=== PATIENT | male | born 1990 | race Caucasian/White ===

== ENCOUNTER 2018-04-20 19:20 | Emergency (ER) | payer SELFPAY ==
[~2018-04-20] VITALS: Ht 177.8 cm; Wt 104.3 kg
[2018-04-20] MEDS ORDERED: diphenhydrAMINE HCL 50 MG/ML VIAL IV ONE (19:30)
[2018-04-20] MEDS ORDERED: HALOPERIDOL LACTATE INJ 5 MG/ML VIAL IM ONE (19:30)
[2018-04-20] MEDS ORDERED: IV NS 0.9% 1,000 ML BAG IV ONE (19:30)
[2018-04-20] MEDS ORDERED: LORAZEPAM INJ 2 MG/ML VIAL IVP ONE (19:30)
--- NOTE | 2018-04-20 19:31 | NUR ---
PT BIB [facility] WITH A C/O METH OD. PT WAS [facility] THE [facility] AND WAS ACTING [place]. PT BECAME COMBATIVE WITH EMS WHEN THEY ARRIVED. PT WENT TO ER #[id number] AND WAS PLACED IN 4 POINT RESTRAINTS, PT WAS NOT ALLOWING STAFF TO TRIAGE OR TAKE VITAL SIGNS. PT WAS PLACED ON THE MONITOR AND CONTINUOUS PULSE OX. DR. ALANIZ IS AT THE BEDSIDE.
[2018-04-20] MEDS ORDERED: HALOPERIDOL LACTATE INJ 5 MG/ML VIAL ONE (19:35)
[2018-04-20] MEDS ORDERED: LORAZEPAM INJ 2 MG/ML VIAL ONE (19:35)
[2018-04-20] MEDS ORDERED: diphenhydrAMINE HCL 50 MG/ML VIAL ONE (19:35)
[2018-04-20 19:46] LABS: BASOPHILS # (AUTO) 0.1 /CMM (0.0-0.2); BASOPHILS % (AUTO) 0.9 % (0.0-2.0); EOSINOPHILS % (AUTO) 0.5 % (0.0-6.0); HEMATOCRIT 47 % (39-51); HEMOGLOBIN 15.8 g/dL (13.5-17.5); LYMPHOCYTES # (AUTO) 2.6 /CMM (0.8-4.8); LYMPHOCYTES % (AUTO) 22.1 % (20.0-44.0); MEAN CORPUSCULAR HGB CONC 34 g/dl (31.0-36.0); MEAN CORPUSCULAR VOLUME 93 fL (80-96); MONOCYTES % (AUTO) 8.5 % (2.0-12.0); PLATELET COUNT (AUTO) 393 /CMM (150-450); RED BLOOD CELL COUNT(AUTO) 5.01 MIL/uL (4.5-6.0); WHITE BLOOD COUNT (AUTO) 11.7 K/uL (4.3-11.0)
--- NOTE | 2018-04-20 19:47 | NUR ---
PT REC'D MEDICATION ORDERED. BLOOD DRAWN AND SENT TO LAB.
[2018-04-20 19:56] LABS: CALCIUM, SERUM 9.2 mg/dL (8.5-10.1); CARBON DIOXIDE 17 mmol/L (21-32); CHLORIDE 104 mmol/L (98-107); CREATININE 1.2 mg/dL (0.6-1.3); GLUCOSE 108 mg/dL (74-106); POTASSIUM 3.3 mmol/L (3.5-5.1); SODIUM SERUM 141 mmol/L (136-145); UREA NITROGEN, BLOOD 15 mg/dL (7-18)
--- NOTE | 2018-04-20 19:58 | NUR ---
PT PLACED ON 2L O2 VIA NC.
[2018-04-20 20:02] LABS: ALANINE AMINOTRANSFERASE 39 U/L (12-78); ALBUMIN 4.1 g/dL (3.4-5.0); ALCOHOL, BLOOD < 3 mg/dL (0-0); ALKALINE PHOSPHATASE 97 U/L (46-116); ASPARTATE AMINOTRANSFERASE 23 U/L (15-37); BILIRUBIN,DIRECT 0.1 mg/dL (0.0-0.2); BILIRUBIN,TOTAL 0.6 mg/dL (0.2-1.0); TOTAL PROTEIN, SERUM 7.9 g/dL (6.4-8.2)
[2018-04-20 20:03] LABS: ACETAMINOPHEN < 2 ug/ml (10-30); SALICYLATE 2.6 mg/dL (2.8-20.0)
--- NOTE | 2018-04-20 20:03 | NUR ---
URINE SAMPLE OBTAINED AND SENT TO LAB.
[2018-04-20 20:07] LABS: APPEARANCE,URINE Clear (CLEAR); BILIRUBIN,URINE SMALL (NEGATIVE); BLOOD, URINE Negative Ery/uL (NEGATIVE); COLOR,URINE Yellow (YELLOW); KETONES,URINE 15 (NEGATIVE); LEUKOCYTE ESTERASE ,URINE Negative (NEGATIVE); NITRITE, URINE Negative (NEGATIVE); PH,URINE 7.5 (5.0-8.0); PROTEIN,URINE Negative (NEGATIVE); UGLUCOSE Negative (NEGATIVE)
--- NOTE | 2018-04-20 20:24 | NUR ---
PT APPEARS TO BE RESTING COMFORTABLY WITH NO S/S OF PAIN OR DISTRESS.
--- NOTE | 2018-04-20 21:50 | NUR ---
PT IS ONLY IN 1 RESTRAINT. LUE.
--- NOTE | 2018-04-20 22:10 | NUR ---
PT APPEARS TO BE SLEEPING SOUNDLY WITH NO S/S OF PAIN OR DISTRESS. PT IS EASILY AROUSED.
--- NOTE | 2018-04-20 23:10 | NUR ---
FINAL RESTRAINT REMOVED. PT APPEARS TO BE RESTING COMFORTABLY WITH NO S/S OF PAIN OR DISTRESS.
--- NOTE | 2018-04-21 00:58 | NUR ---
PT APPEARS TO BE SLEEPING COMFORTABLY. PT IS EASILY AROUSED. VSS. NAD NOTED. WILL CONTINUE TO MONITOR THE PT.
--- NOTE | 2018-04-21 01:00 | NUR ---
PT REMOVED ALL MONITOR LEADS, BP CUFF, PULSE OX. WILL CONTINUE TO MONITOR THE PT.
--- NOTE | 2018-04-21 03:25 | NUR ---
PT APPEARS TO BE SLEEPING SOUNDLY. NO S/S OF PAIN OR DISTRESS NOTED. RESP EVEN AND UNLABORED.
--- NOTE | 2018-04-21 05:10 | NUR ---
PT APPEARS TO BE SLEEPING SOUNDLY WITH NO S/S OF PAIN OR DISTRESS.
--- NOTE | 2018-04-21 06:05 | NUR ---
PT STOOD UP, BUT FELT UNSTEADY. PT WENT BACK TO SLEEP. NOTIFIED.
[2018-04-21 06:59] VITALS: BP 128/72
== END 2018-04-21 06:59 | disposition home or self-care (01) ==
LOC: ER 19:21
DX: F15.129 Other stimulant abuse with intoxication, unspecified (principal)
CPT/HCPCS: 36415; 80048-TC; 80076-TC; 80305; 81000-TC; 85025-TC; A4606; G0480; J1200; J1630; J2060; J7030